=== PATIENT | male | born 1955 | race Two or more races ===

== ENCOUNTER 2022-04-29 08:48 | Outpatient (CLI) | payer OTHER | END 2022-04-29 08:58 | disposition home or self-care (01) | LOC: RAD 08:48 | PROVIDERS: ATTEND Orthopaedic Surgery | DX: M17.11 Unilateral primary osteoarthritis, right knee (principal); M25.551 Pain in right hip; M25.552 Pain in left hip; T84.033A Mechanical loosening of internal left knee prosthetic joint, initial encounter ==

== ENCOUNTER → 2022-04-29 | Outpatient (CLI) | payer OTHER | END | disposition home or self-care (01) | LOC: NUCLEAR 11:14 | PROVIDERS: ATTEND Orthopaedic Surgery | DX: M81.0 Age-related osteoporosis without current pathological fracture (principal) ==

== ENCOUNTER 2022-06-10 12:18 | Outpatient (CLI) | payer OTHER | END 2022-06-10 12:26 | disposition home or self-care (01) | LOC: LAB 12:18 | PROVIDERS: ATTEND Orthopaedic Surgery | DX: M25.40 Effusion, unspecified joint (principal) ==

== ENCOUNTER 2022-10-14 11:07 | Outpatient (CLI) | payer OTHER | END 2022-10-14 11:15 | disposition home or self-care (01) | LOC: RAD 11:07 | PROVIDERS: ATTEND Orthopaedic Surgery | DX: M79.652 Pain in left thigh (principal); M79.605 Pain in left leg; Z76.89 Persons encountering health services in other specified circumstances; M25.562 Pain in left knee ==

== ENCOUNTER 2022-11-09 10:09 | Outpatient (CLI) | payer OTHER | END 2022-11-09 10:14 | disposition home or self-care (01) | LOC: RAD 10:09 | PROVIDERS: ATTEND Orthopaedic Surgery | DX: M54.59 Other low back pain (principal) ==